=== PATIENT | female | born 1970 | race Caucasian/White ===

== ENCOUNTER 2020-03-03 06:29 | Day surgery (SDC) | payer MEDICARE, MEDICAID ==
[~2020-03-03] VITALS: Ht 152.4 cm; Wt 63.6 kg
[2020-03-03 06:55] LABS: HEMATOCRIT 40.8 % (36.0-48.0); HEMOGLOBIN 13.4 g/dL (12-16); MCH 29.6 pg (26.0-34.0); MCHC 32.8 g/dL (31.0-37.0); MCV 90.1 fL (80.0-100.0); MEAN PLATELET VOLUME 9.7 fL (7.4-10.4); RBC 4.53 10x6/uL (4.00-5.40); RDW 14.4 % (11.5-14.5); WBC 7.6 10x3/uL (4.8-10.8)
[2020-03-03] MEDS ORDERED: OXYBUTYNIN CHLOR5 MG PO (07:15)
[2020-03-03] MEDS ORDERED: COZAAR50 MG PO (07:15)
[2020-03-03] MEDS ORDERED: PROBIOTIC1 EAC1 PO (07:16)
[2020-03-03] MEDS ORDERED: FLOMAX0.4 MG PO (07:17)
[2020-03-03 07:26] VITALS: BP 133/86; Ht 152.4 cm; Wt 63.6 kg
[2020-03-03 09:15] LABS: HCG SERUM NEGATIVE (NEGATIVE)
--- NOTE | 2020-03-03 11:57 | NUR ---
IV D/C'D WITH CANNULA INTACT.DISCHARGE INSTRUCTIONS GIVEN. NO C/O
--- NOTE | 2020-03-03 15:58 | OP ---
PATIENT NAME: ALEX COKER MEDICAL RECORD: [id number] :66 LOCATION:D.OPS ADMISSION DATE: SURGEON: MICHELLE RED DO DATE OF OPERATION: 03/03/2020 PROCEDURE: Colonoscopy with polypectomy. INDICATIONS FOR PROCEDURE: Stool DNA based colorectal cancer screening positive. SCOPE: Olympus video pediatric colonoscope. MEDICATIONS: Propofol 420 mg IV per anesthesia. WITHDRAWAL TIME: 21 minutes. ESTIMATED BLOOD LOSS: Minimal. COMPLICATIONS: None. FINDINGS: Informed consent was given. The patient was made comfortable with the above medication. After reaching an adequate level of sedation by slow IV push, the patient was placed on her left side. A digital rectal examination was performed and was normal. The endoscope was then advanced under direct visualization through the rectum to the cecum, confirmed by the presence of the appendiceal orifice and ileocecal valve. The endoscope was slowly withdrawn and mucosa was carefully examined. The prep quality was good. There was evidence of mild diverticulosis involving the sigmoid colon. There were 3 benign-appearing sessile polyps located in the ascending colon. They all measured approximately 5 mm in diameter. They were all removed using hot snare and retrieved. Retroflexion was performed in the rectum with visualization of a normal appearing rectal wall. The endoscope was withdrawn from the patient. The patient tolerated the procedure well and there were no complications. IMPRESSION: 1. Three polyps as described above, removed using a hot snare. 2. Mild diverticulosis of the sigmoid colon. PLAN AND RECOMMENDATIONS: 1. Discharge home when recovery parameters are met. 2. Follow up biopsy specimen results. 3. High fiber diet. 4. Continue current medications. 5. Recall colonoscopy in 3 years. TRANSINT:[id number] Voice Confirmation ID: [id number] DOCUMENT ID: [id number] OPERATIVE REPORT [id number] ALEX COKER MICHELLE RED DO at 1558 CC: [id number] DICTATION DATE: 03/03/20917 FRONT END WEB DESIGNER: 03/03/20 [facility] 03/03/20 [facility] [address] [id number]
== END 2020-03-03 10:05 | disposition home or self-care (01) ==
LOC: D.OPS 06:29
PROVIDERS: Anesthesiology; ATTEND Internal Medicine Gastroenterology
DX: Z12.11 Encounter for screening for malignant neoplasm of colon (principal); K63.5 Polyp of colon